=== PATIENT | female | born 1990 | race African-American/Black ===

== ENCOUNTER 2020-01-02 16:14 | Emergency (ER) | payer MEDICAID ==
[~2020-01-02] VITALS: Ht 167.6 cm; Wt 113.0 kg
[2020-01-02 16:14] VITALS: BP 137/84
[2020-01-02] MEDS ORDERED: KETOROLAC 30 MG/ML VIAL. IVP ONE (16:30)
[2020-01-02] MEDS ORDERED: ORPHENADRINE CITRATE 60 MG/2 ML VIAL. IM ONE (16:30)
[2020-01-02] MEDS ORDERED: methylPREDNISolone SOD SUCC PF 40 MG/ML VIAL. IV ONE (16:30)
--- NOTE | 2020-01-02 16:46 | PHYS DOC ---
Past Medical History Past Medical History: Diabetes-Type II, Hypertension, Sciatica (ALVARO FAIRBANKS APRN) Past Surgical History: (ALVARO FAIRBANKS APRN) Smoking Status: Never Smoker Alcohol Use: None (ALVARO FAIRBANKS APRN) General Adult EDM: Chief Complaint: BACK PAIN - NO INJURY HPI: HPI: Patient is a 29 year old female who presents with right lower back pain that radiates down the right leg for the last 2 months. Patient reports that she has had this pain due to a slipped disc from a epidural during . Patient reports that she takes gabapentin and naproxen for her pain but it is not helping with her pain today. She contacted the pharmacy and they are working on getting her preauthorization from her primary care provider for something stronger. Patient follows up with neuro surgery at . She has a physical therapy appointment tomorrow. Patient is denying any urinary complaints she is denying any loss of bowel or bladder, or saddle paresthesias. Patient states that she is just feeling that she is fine but pain is worse with movement is hard for her to walk. Rating her pain 8 out of 10. Patient states that when she twists her torso to the right or her lower back to the right that she will get some numbness in that right lower leg and then when she lays flat it is fine. She states this is normal and chronic finding for her. (ALVARO FAIRBANKS POWER EQUIPMENT TECHNOLOGY INSTRUCTOR) Review of Systems: Review of Systems: Musculoskeletal: Right low back pain with sharp shooting radiation down the back of the leg or joint pain. [] (ALVARO FAIRBANKS P[employer] EQUIPMENT TECHNOLOGY INSTRUCTOR) Heart Score: Risk Factors: Risk Factors: DM, Current or recent (<one month) smoker, HTN, HLP, family history of CAD, obesity. Risk Scores: Score 0 - 3: 2.5% MACE over next 6 weeks - Discharge Home Score 4 - 6: 20.3% MACE over next 6 weeks - Admit for Clinical Observation Score 7 - 10: 72.7% MACE over next 6 weeks - Early Invasive Strategies (ALVARO FAIRBANKS APRN) Current Medications: Current Medications Medications (Trade) Dose Ordered Sig/Elmer Start Time Stop Time Status Last Admin Dose Admin Ketorolac Tromethamine (Toradol 30mg Vial) 30 mg 1X ONCE 01/02/20 16:30 01/02/20 16:35 DC Methylprednisolone Sodium Succinate (SOLU-Medrol 40MG VIAL) 60 mg 1X ONCE 01/02/20 16:30 01/02/20 16:32 DC Orphenadrine Citrate (Norflex) 60 mg 1X ONCE 01/02/20 16:30 01/02/20 16:36 DC (ALVARO FAIRBANKS [employer]QUIP[employer] TECHN[employer]Y INSTRUCTOR) Allergies: Allergies: Allergies Coded Allergies Type Severity Reaction Last Updated Verified No Known Drug Allergies 01/02/20 No ([facility]ALVARO MATTHEW P[employer] EQUIPMENT TECHNOLOGY INSTRUCTOR) Physical Exam: PE: Constitutional: Well developed, well nourished, no acute distress, non-toxic appearance. [] HENT: Normocephalic, atraumatic, bilateral external ears normal, oropharynx moist, no oral exudates, nose normal. [] Eyes: PERRLA, EOMI, conjunctiva normal, no discharge. [] Neck: Normal range of motion, no tenderness, supple, no stridor. [] Cardiovascular:Heart rate regular rhythm, no murmur [] Lungs & Thorax: Bilateral breath sounds clear to auscultation [] Abdomen: Bowel sounds normal, soft, no tenderness, no masses, no pulsatile masses. [] Skin: Warm, dry, no erythema, no rash. [] Back: No tenderness, no CVA tenderness. [] Extremities: No tenderness, no cyanosis, no clubbing, ROM intact, no edema. [] Neurologic: Alert and oriented X 3, normal motor function, normal sensory function, no focal deficits noted. [] Psychologic: Affect normal, judgement normal, mood normal. Normal physical exam [] ([facility]ALVARO MATTHEW APRN) Current Patient Data: Vital Signs: Vital Signs Date Time Temp Pulse Resp B/P (MAP) Pulse Ox O2 Delivery O2 Flow Rate FiO2 01/02/20 16:14 98.5 89 20 137/84 (101) 99 Room Air 98.5 ([facility]ALVARO MATTHEW APRN) EKG: EKG: [] [facility] Radiology/Procedures: Radiology/Procedures: [] [facility] EQUIPMENT TECHNOLOGY INSTRUCTOR) Course & Med Decision Making: Course & Med Decision Making Pertinent Labs and Imaging studies reviewed. (See chart for details) Moves all extremities with equal strength. Full sensations laying flat. No extremity edema. No calf tenderness. Skin pink warm and dry. Patient is given solumedrol, Toradol and orphenadrine in the ED. Patients pain is better after medication given and she was able to ambulate to the bathroom. Patient states that the pain is better and it is tolerable. She states this all she is needing it is to make the pain tolerable. She agrees to be sent home on Percocet. She states that she has been communicating with her doctor through the portal. She states that she will go to physical therapy tomorrow and when she gets home she will text her doctor through the portal with a let them know that she is in the emergency room to get pain relief. [] (ALVARO FAIRBANKS APRN) Dragon Disclaimer: Dragon Disclaimer: This electronic medical record was generated, in whole or in part, using a voice recognition dictation system. (ALVARO FAIRBANKS APRN) Departure Departure Impression: Primary Impression: Sciatica of right side Disposition: HOME, SELF-CARE Condition: STABLE Referrals: SUMAYA ARGUELLO APRN (PCP) Patient Instructions: Sciatica with [facility] Additional Instructions: Follow-up with your doctor and have physical therapy as planned. Take medication as prescribed and with food and do not drink alcohol or drive with taking the medicine. Scripts Oxycodone/Apap 5-325 (PERCOCET 5-325 MG TABLET ) 1 Each Tablet 1 TAB PO PRN Q6HRS PRN for PAIN, #10 TAB 0 Refills Prov: ALVARO FAIRBANKS APRN 01/02/20 Justicifation of Admission Dx: Justifications for Admission: Justification of Admission Dx: N/A (ALVARO FAIRBANKS APRN) Attending Signature Attending Signature I have participated in the care of this patient and I have reviewed and agree with all pertinent clinical information above including history, exam, and recommendations. (ENOCH CUEVAS DO) ALVARO FAIRBANKS APRN Jan 02, 2020 16:46 ENOCH CUEVAS DO Jan 03, 2020 06:36
[2020-01-02 17:27] LABS: BILIRUBIN,URINE NEGATIVE (NEG); CLARITY,URINE CLEAR; COLOR,URINE YELLOW; NITRITE,URINE NEGATIVE (NEG); PROTEIN,URINE NEGATIVE (NEG-TRACE); UROBILINOGEN,URINE 0.2 mg/dL (0.2 mg/dL)
[2020-01-02 17:35] LABS: BACTERIA,URINE MANY /HPF (0-FEW); SQUAMOUS EPITHELIAL CELL,UR MOD /LPF
[2020-01-02 17:36] LABS: BARBITURATES NEG (NEG); BENZODIAZEPINES NEG (NEG); CANNABINOIDS POS (NEG); COCAINE NEG (NEG); METHADONE NEG (NEG); OPIATES NEG (NEG); PHENCYCLIDINE NEG (NEG); RBC,URINE 0 /HPF (0-2)
[2020-01-02 17:37] LABS: AMPHETAMINE/METHAMPHETAMINE NEG (NEG)
[2020-01-02] MEDS ORDERED: OXYC1TAB15 PO (17:47)
== END 2020-01-02 18:21 | disposition home or self-care (01) ==
LOC: ER 16:14
DX: M54.41 Lumbago with sciatica, right side (principal); I10 Essential (primary) hypertension; E11.9 Type 2 diabetes mellitus without complications
CPT/HCPCS: 80307; 81001; 81025; 87086; 96372; 96374; 96375; 99284; J1885; J2360; J2920